=== PATIENT | female | born 1985 | race Caucasian/White ===

== ENCOUNTER 2016-07-28 12:36 | Outpatient (CLI) | payer MEDICAID | END 2016-07-28 12:37 | disposition home or self-care (01) | DX: Z36 Encounter for antenatal screening of mother (principal) ==

== ENCOUNTER 2016-12-01 05:40 | Emergency (ER) | payer MEDICAID ==
[2016-12-01 05:55] VITALS: BP 152/85
--- NOTE | 2016-12-01 05:55 | ED Physician Documentation ---
PD HPI HEENT - Stated complaint Stated Complaint: R EAR PAIN,SORE THROAT, COUGH - Chief complaint Chief Complaint: Heent - History obtained from History obtained from: Patient - History of Present Illness Timing - onset: Enter time (03:00), Today Timing - details: Gradual onset Pain level now: 4 Location: Right ear, Throat Improves: Nothing Worsens: Other (no exacerbating factors) Associated symptoms: Congestion, Cough. No: Fever Similar symptoms before: Has not had sx before Recently seen: Not recently seen - Additional information Additional information: 38 weeks . patient says she frequently has seasonal allergies and has felt sinus and ear congestion x 2 weeks, but she has been having mild cough x 2 days, and since approximately 3 AM this morning, increasingly severe right ear pain and sore throat. 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 Psych: Depression, Anxiety - Past Surgical History Past Surgical History: Yes General: Appendectomy, Hiatal hernia repair, Colonoscopy, EGD - Present Medications Home Medications: Ambulatory Orders Medication Instructions Recorded Confirmed Azithromycin [Zithromax] 250 mg PO DAILY #4 tablet 12/01/16 Cetirizine [ZyrTEC] 10 mg PO DAILY 12/01/16 12/01/16 Fluticasone [Flonase] 1 spray NS DAILY PRN 12/01/16 12/01/16 - Allergies Allergies/Adverse Reactions: Allergies Allergy/AdvReac Type Severity Reaction Status Date / Time No Known Drug Allergies Allergy Verified 12/01/16 05:45 - Social History Does the pt smoke?: No Smoking Status: Never smoker Does the pt drink ETOH?: No Does the pt have substance abuse?: No - Immunizations Immunizations are current?: Yes - POLST Patient has POLST: No PD ED PE NORMAL - Vitals Vital signs reviewed: Yes - General General: Alert and oriented X 3, No acute distress, Well developed/nourished - HEENT HEENT: Pharynx benign - Neck Neck: Supple, no meningeal sign - Respiratory Respiratory: No respiratory distress, Clear bilaterally PD ED PE EXPANDED - HEENT HEENT: R TM red, R TM bulging Results - Vitals Vitals: Vital Signs - 24 hr 12/01/16 05:42 Temperature 36.0 C L Heart Rate 100 Respiratory 15 Rate Blood Pressure 152/85 H O2 Saturation 100 Oxygen O2 Source Room air PD MEDICAL DECISION MAKING - ED course Complexity details: considered differential, d/w patient Departure - Departure Disposition: 01 Home, Self Care Clinical Impression: Otitis media Qualifiers: Otitis media type: suppurative Laterality: right Chronicity: acute Recurrence: not specified as recurrent Spontaneous tympanic membrane rupture: without spontaneous rupture Qualified Code(s): H66.001 - Acute suppurative otitis media without spontaneous rupture of ear drum, right ear Condition: Good Instructions: ED Otitis Media Acute Adult Follow-Up: Nela Stewart ARNP [Primary Care Provider] - Prescriptions: Azithromycin [Zithromax] 250 mg PO DAILY #4 tablet Discharge Date/Time: 12/01/16 06:26
[2016-12-01] MEDS ORDERED: AZITHROMYCIN 250 MG TABLET PO STA (06:13)
[2016-12-01] MEDS ORDERED: AZITHROMYCIN 250 MG TABLET PO ONE (06:16)
== END 2016-12-01 06:26 | disposition home or self-care (01) ==
LOC: ED 05:40
DX: O99.89 Other specified diseases and conditions complicating pregnancy, childbirth and the puerperium (principal); H66.001 Acute suppurative otitis media without spontaneous rupture of ear drum, right ear; Z3A.38 38 weeks gestation of pregnancy
CPT/HCPCS: 99283; A9270

== ENCOUNTER 2016-12-02 08:49 | Emergency (ER) | payer MEDICAID ==
[2016-12-02] MEDS ORDERED: ONDANSETRON 4 MG/2 ML VIAL IVP STA ×2 (09:29→11:12)
[2016-12-02] MEDS ORDERED: FAMOTIDINE 20 MG/50 ML 50 ML IV ONE ×2 (09:29→09:40)
[2016-12-02] MEDS ORDERED: SODIUM CHLORIDE 0.9% 1,000 ML IV ONE ×2 (09:29→11:12)
[2016-12-02] MEDS ORDERED: ACETAMINOPHEN 1,000 MG/100 ML 100 ML IV STA (09:29)
[2016-12-02] MEDS ORDERED: ONDANSETRON 4 MG/2 ML VIAL ONE ×2 (09:40→11:15)
[2016-12-02] MEDS ORDERED: ACETAMINOPHEN 1,000 MG/100 ML 100 ML IV ONE (09:40)
[2016-12-02] MEDS ORDERED: PROMETHAZINE INJ 12.5 MG in SODIUM CHLORIDE 0.9% 50 ML IV STA (11:39)
[2016-12-02] MEDS ORDERED: PROMETHAZINE 25 MG/1 ML VIAL ONE (11:43)
[2016-12-02] MEDS ORDERED: MECLIZINE 12.5 MG TABLET PO STA (13:02)
[2016-12-02] MEDS ORDERED: AMOXICILLIN 250 MG CAPSULE PO STA (13:03)
[2016-12-02] MEDS ORDERED: AMOXICILLIN 250 MG CAPSULE PO ONE (13:05)
[2016-12-02] MEDS ORDERED: MECLIZINE 12.5 MG TABLET PO ONE (13:06)
== END 2016-12-02 14:35 | disposition home or self-care (01) ==
DX: R42 Dizziness and giddiness (principal); H66.001 Acute suppurative otitis media without spontaneous rupture of ear drum, right ear; R11.2 Nausea with vomiting, unspecified; T36.3X5A Adverse effect of macrolides, initial encounter; Y92.019 Unspecified place in single-family (private) house as the place of occurrence of the external cause
CPT/HCPCS: 36415; 80053; 83690; 96365; 96367; 96375; 96376; 99284; A9270; J0131

== ENCOUNTER 2020-04-23 15:14 | Outpatient (CLI) | payer MEDICAID ==
[2020-04-23 15:29] LABS: MUDS CUTOFF CONCENTRATIONS CUTOFF CONC BELOW:
[2020-04-23 20:42] LABS: AMPHETAMINE SCREEN,URINE NEGATIVE (NEGATIVE); BENZODIAZEPINES SCREEN, URINE NEGATIVE (NEGATIVE); COCAINE SCREEN URINE NEGATIVE (NEGATIVE); METHADONE SCREEN, URINE NEGATIVE (NEGATIVE); METHAMPHETAMINES SCREEN, URINE NEGATIVE (NEGATIVE); OPIATE SCREEN, URINE NEGATIVE (NEGATIVE); OXYCODONE SCREEN, URINE NEGATIVE (NEGATIVE); PROPOXYPHENE SCREEN, URINE NEGATIVE (NEGATIVE); TRICYCLIC ANTIDEPRESSANT,URINE NEGATIVE (NEGATIVE)
== END 2020-04-23 15:15 | disposition home or self-care (01) ==
LOC: LAB.S 15:14
PROVIDERS: ATTEND Nurse Practitioner Psychiatric/Mental Health
DX: F90.0 Attention-deficit hyperactivity disorder, predominantly inattentive type (principal)
CPT/HCPCS: 80306

== ENCOUNTER 2020-06-08 14:38 | Outpatient (CLI) | payer MEDICAID ==
[2020-06-08 20:00] LABS: BASOPHILS % (AUTO) 0.7 %; EOSINOPHILS # (AUTO) 0.1 10^3/uL (0.0-0.7); EOSINOPHILS % (AUTO) 1.7 %; HGB - HEMOGLOBIN 14.8 g/dL (12.0-16.0); LYMPHOCYTES # (AUTO) 1.9 10^3/uL (1.5-3.5); LYMPHOCYTES % (AUTO) 32.3 %; MEAN CORPUSCULAR HEMOGLOBIN 29.5 pg (27.0-31.0); MEAN CORPUSCULAR HGB CONC 32.7 g/dL (32.0-36.0); MEAN CORPUSCULAR VOLUME 90.4 fL (81.0-99.0); MEAN PLATELET VOLUME 10.9 fL (7.9-10.8); MONOCYTES # (AUTO) 0.4 10^3/uL (0.0-1.0); MONOCYTES % (AUTO) 7.1 %; NEUTROPHILS # (AUTO) 3.3 10^3/uL (1.5-6.6); PLT - PLATELET COUNT 282 10^3/uL (130-450); RED BLOOD COUNT 5.01 10^6/uL (4.20-5.40); RED CELL DISTRIBUTION WIDTH 13.2 % (12.0-15.0); WHITE BLOOD COUNT 5.8 x10^3/uL (4.8-10.8)
[2020-06-08 20:13] LABS: ALBUMIN 4.4 g/dL (3.2-5.5); ALBUMIN/GLOBULIN RATIO 1.5 (1.0-2.2); BILIRUBIN,TOTAL 0.6 mg/dL (0.2-1.0); CALCIUM 9.3 mg/dL (8.5-10.3); CREATININE 0.6 mg/dL (0.4-1.0); TOTAL PROTEIN 7.4 g/dL (6.7-8.2)
[2020-06-08 20:32] LABS: RHEUMATOID FACTOR NEGATIVE (Negative)
== END 2020-06-08 14:39 | disposition home or self-care (01) ==
LOC: LAB.S 14:38
PROVIDERS: ATTEND Registered Nurse
DX: K50.90 Crohn's disease, unspecified, without complications (principal); M25.50 Pain in unspecified joint
CPT/HCPCS: 36415; 80053; 84443; 85025; 85651; 86038; 86430

== ENCOUNTER 2020-10-17 11:18 | Emergency (ER) | payer MEDICAID ==
[2020-10-17] MEDS ORDERED: diphenhydrAMINE 25 MG CAPSULE PO STA (11:48)
--- NOTE | 2020-10-17 12:27 | ED Physician Documentation ---
PD HPI SKIN - Stated complaint Stated Complaint: HIVES - Chief complaint Chief Complaint: Allergic Rx - History obtained from History obtained from: Patient - Additional information Additional information: Got first dose mRNA vaccine for Covid 3 days ago. The subsequent day developed diffuse body wide hives and itching. Has not tried anything for it. No throat swelling. 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 HEENT: Other (vertigo at times) Psych: Depression, Anxiety - Past Surgical History Past Surgical History: Yes General: Appendectomy, Hiatal hernia repair, Colonoscopy, EGD - Present Medications Home Medications: Ambulatory Orders Medication Instructions Recorded Confirmed Cetirizine HCl [Zyrtec] 1 tab PO DAILY 10/17/20 10/17/20 Dextroamphetamine/Amphetamine 1 tab PO DAILY PM 10/17/20 10/17/20 [Adderall 10 mg Tablet] Dextroamphetamine/Amphetamine 1 tab PO BID 10/17/20 10/17/20 [Adderall 20 mg Tablet] - Allergies Allergies/Adverse Reactions: Allergies Allergy/AdvReac Type Severity Reaction Status Date / Time No Known Drug Allergies Allergy Verified 12/02/16 08:59 - Social History Does the pt smoke?: No Smoking Status: Never smoker Does the pt drink ETOH?: No Does the pt have substance abuse?: No - Immunizations Immunizations are current?: Yes - POLST Patient has POLST: No PD ED PE NORMAL - Vitals Vital signs reviewed: Yes - General General: Alert and oriented X 3, No acute distress - HEENT HEENT: Other (Modest diffuse urticaria, oropharynx normal, phonation normal) - Respiratory Respiratory: No respiratory distress - Abdomen Abdomen: Non tender - Derm Derm: Warm and dry - Neuro Neuro: Alert and oriented X 3, Normal speech Results - Vitals Vitals: Vital Signs - 24 hr 10/17/20 11:35 Temperature 36.7 C Heart Rate 90 Respiratory 20 Rate Blood Pressure 149/99 H O2 Saturation 98 Oxygen O2 Source Room air PD MEDICAL DECISION MAKING - ED course ED course: Would hold steroids under the circumstances, noting that she is not having anaphylaxis and it would blunt any immune response she is having to the vaccine. Discussed that for second dose she should probably seek out an alternative formulation such as Tony & Tony. Departure - Departure Disposition: 01 Home, Self Care Clinical Impression: Allergic urticaria Condition: Good Record reviewed to determine appropriate education?: Yes Instructions: ED Drug React Allergic Comments: Benadryl, 1 to 2 tablets [id number] every 6 hours as needed for the itching. Do not drink or drive with it. As discussed I would recommend seeking out a Tony & Tony vaccine in 3+ weeks for second dose, I would recommend taking a second dose of either of the mRNA vaccines (Pfizer or Moderna).
[2020-10-17 12:32] VITALS: BP 119/79
== END 2020-10-17 12:35 | disposition home or self-care (01) ==
LOC: ED 11:18
DX: L50.0 Allergic urticaria (principal); T50.Z95A Adverse effect of other vaccines and biological substances, initial encounter; Y84.8 Other medical procedures as the cause of abnormal reaction of the patient, or of later complication, without mention of misadventure at the time of the procedure
CPT/HCPCS: 99282; A9270

== ENCOUNTER 2020-10-23 10:20 | Outpatient (CLI) | payer MEDICAID ==
--- OUTSIDE RECORDS SUMMARY | 2020-10-27 02:38 | EXTERNAL MEDICAL SUMMARY RPT | Continuity of Care Document ---
:1985 Demographics Phone Unavailable Preferred Language Unknown Marital Status Unknown Faith Affiliation Unknown Race Unknown Ethnic Group Unknown Author Organization [facility] Address [address] [id number] Phone Social History date description facility [phone]
== END 2020-10-23 10:21 ==
LOC: EMS 10:20
DX: L50.9 Urticaria, unspecified (principal); R22.0 Localized swelling, mass and lump, head

== ENCOUNTER 2020-10-23 11:06 | Emergency (ER) | payer MEDICAID ==
[2020-10-23 11:14] VITALS: BP 132/79
[2020-10-23] MEDS ORDERED: predniSONE 20 MG TABLET PO STA (11:21)
[2020-10-23] MEDS ORDERED: diphenhydrAMINE 25 MG CAPSULE PO STA (11:21)
--- NOTE | 2020-10-23 11:24 | ED Physician Documentation ---
PD HPI SKIN - Stated complaint Stated Complaint: SWOLLEN LIPS - Chief complaint Chief Complaint: Allergic Rx - History obtained from History obtained from: Patient - Additional information Additional information: She had first dose Mderna vaccine about 9 or 10 days ago. She was seen a few days ago for hives and conservative care and Benadryl were advised with the thought that we wanted to try to avoid steroids to blunt the immune response, since then though she started developed some lip swelling which is concerning. Still has the hives but itching is controlled with Benadryl. 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 HEENT: Other Psych: Depression, Anxiety - Past Surgical History Past Surgical History: Yes General: Appendectomy, Hiatal hernia repair, Colonoscopy, EGD - Present Medications Home Medications: Ambulatory Orders Medication Instructions Recorded Confirmed Cetirizine HCl [Zyrtec] 1 tab PO DAILY 10/17/20 10/17/20 Dextroamphetamine/Amphetamine 1 tab PO DAILY PM 10/17/20 10/17/20 [Adderall 10 mg Tablet] Dextroamphetamine/Amphetamine 1 tab PO BID 10/17/20 10/17/20 [Adderall 20 mg Tablet] predniSONE [Deltasone] 20 mg PO [id number] #[id number] tab 10/23/20 - Allergies Allergies/Adverse Reactions: Allergies Allergy/AdvReac Type Severity Reaction Status Date / Time No Known Drug Allergies Allergy Verified 10/23/20 11:14 - Social History Does the pt smoke?: No Smoking Status: Never smoker Does the pt drink ETOH?: No Does the pt have substance abuse?: No - Immunizations Immunizations are current?: Yes - POLST Patient has POLST: No PD ED PE NORMAL - Vitals Vital signs reviewed: Yes - General General: Alert and oriented X 3, No acute distress - HEENT HEENT: Other (Very mild angioedema of the lower lip. No retropharyngeal swelling.) - Neck Neck: Supple, no meningeal sign, No bony TTP - Derm Derm: Other (Modest diffuse hives) - Neuro Neuro: Alert and oriented X 3, Normal speech Results - Vitals Vitals: Vital Signs - 24 hr 10/23/20 11:07 Temperature 36.6 C Heart Rate 78 Respiratory 16 Rate Blood Pressure 132/79 H O2 Saturation 99 Oxygen O2 Source Room air PD MEDICAL DECISION MAKING - ED course ED course: Given the persistent nature now mild angioedema of the lips, I think it probably is time to go ahead and start steroids. She was again guided that if she were to get another Covid vaccine and should be Tony & Tony Or another nonmRNA formulation. Departure - Departure Disposition: 01 Home, Self Care Clinical Impression: Allergic urticaria Condition: Good Record reviewed to determine appropriate education?: Yes Instructions: ED Allergic Reaction General Other Prescriptions: predniSONE [Deltasone] 20 mg PO [id number] #21 tab Comments: Return if worsening. Again as previously discussed, if you decide to get another coronavirus vaccine should be a nonmRNA formulation such as Tony & Tony.
--- OUTSIDE RECORDS SUMMARY | 2020-10-27 02:31 | EXTERNAL MEDICAL SUMMARY RPT | Continuity of Care Document ---
:1985 Demographics Phone Unavailable Preferred Language Unknown Marital Status Unknown Tenriism Affiliation Unknown Race Unknown Ethnic Group Unknown Author Organization [facility] Address [address] [id number] Phone Social History date description facility [phone]
== END 2020-10-23 11:30 | disposition home or self-care (01) ==
LOC: ED 11:06
DX: L50.0 Allergic urticaria (principal); T78.3XXA Angioneurotic edema, initial encounter; T50.Z95A Adverse effect of other vaccines and biological substances, initial encounter; Y84.8 Other medical procedures as the cause of abnormal reaction of the patient, or of later complication, without mention of misadventure at the time of the procedure
CPT/HCPCS: 99282; 99284; A9270; J7512

== ENCOUNTER 2020-11-05 08:00 | Outpatient (CLI) | payer MEDICAID ==
[2020-11-05 21:16] LABS: BASOPHILS % (AUTO) 0.1 %; EOSINOPHILS % (AUTO) 0.1 %; HCT - HEMATOCRIT 39.7 % (37.0-47.0); HGB - HEMOGLOBIN 12.9 g/dL (12.0-16.0); LYMPHOCYTES % (AUTO) 27.9 %; MEAN CORPUSCULAR HEMOGLOBIN 28.3 pg (27.0-31.0); MEAN CORPUSCULAR HGB CONC 32.5 g/dL (32.0-36.0); MEAN CORPUSCULAR VOLUME 87.1 fL (81.0-99.0); MONOCYTES # (AUTO) 0.6 10^3/uL (0.0-1.0); NEUTROPHILS # (AUTO) 6.9 10^3/uL (1.5-6.6); NEUTROPHILS % (AUTO) 65.4 %; PLT - PLATELET COUNT 334 10^3/uL (130-450); RED BLOOD COUNT 4.56 10^6/uL (4.20-5.40); RED CELL DISTRIBUTION WIDTH 14.4 % (12.0-15.0); WHITE BLOOD COUNT 10.6 x10^3/uL (4.8-10.8)
[2020-11-05 21:33] LABS: CALCIUM 9.1 mg/dL (8.5-10.3); CREATININE 0.7 mg/dL (0.4-1.0)
== END 2020-11-05 23:59 | disposition home or self-care (01) ==
LOC: LAB.S 08:00
PROVIDERS: ATTEND Physician Assistant
DX: R00.0 Tachycardia, unspecified (principal)
CPT/HCPCS: 36415; 80048; 85025

== ENCOUNTER 2021-02-18 08:00 | Outpatient (CLI) | payer MEDICAID ==
[2021-02-18 20:13] LABS: ALBUMIN 3.9 g/dL (3.2-5.5); ALBUMIN/GLOBULIN RATIO 1.3 (1.0-2.2); BILIRUBIN,TOTAL 0.5 mg/dL (0.2-1.0); CALCIUM 8.8 mg/dL (8.5-10.3); CREATININE 0.7 mg/dL (0.4-1.0); POTASSIUM 4.1 mmol/L (3.5-5.0); TOTAL PROTEIN 6.9 g/dL (6.7-8.2)
== END 2021-02-18 23:59 | disposition home or self-care (01) ==
LOC: LAB.S 08:00
PROVIDERS: ATTEND Physician Assistant Medical
DX: Z51.81 Encounter for therapeutic drug level monitoring (principal); Z79.899 Other long term (current) drug therapy
CPT/HCPCS: 36415; 80053

== ENCOUNTER 2021-02-18 08:00 | Outpatient (CLI) | payer MEDICAID ==
[2021-02-19 21:31] LABS: BACTERIAL VAGINOSIS DNA NEGATIVE (NEGATIVE); CANDIDA GLABRATA DNA NEGATIVE (NEGATIVE); CANDIDA GROUP DNA NEGATIVE (NEGATIVE); CANDIDA KRUSEI DNA NEGATIVE (NEGATIVE); TRICHOMONAS VAGINALIS DNA NEGATIVE (NEGATIVE)
== END 2021-02-18 23:59 | disposition home or self-care (01) ==
LOC: LAB.S 08:00
PROVIDERS: ATTEND Physician Assistant Medical
DX: R10.9 Unspecified abdominal pain (principal)
CPT/HCPCS: 87661; 87801

== ENCOUNTER 2021-04-01 13:05 | Outpatient (CLI) | payer MEDICAID ==
[2021-04-01 20:36] LABS: BILIRUBIN,URINE NEGATIVE (NEGATIVE); GLUCOSE, URINE (UA) NEGATIVE (NEGATIVE); KETONES,URINE (UA) NEGATIVE (NEGATIVE); LEUKOCYTE ESTERASE, URINE NEGATIVE (NEGATIVE); NITRITE,URINE NEGATIVE (NEGATIVE); OCCULT BLOOD,URINE NEGATIVE (NEGATIVE); PROTEIN,URINE NEGATIVE (NEGATIVE); UROBILINOGEN,URINE 0.2 (NORMAL) E.U./dL (NORMAL)
[2021-04-01 20:42] LABS: CLARITY,URINE CLEAR (CLEAR)
[2021-04-01 20:43] LABS: BACTERIA,URINE None Seen /HPF (None Seen); RBC,URINE None Seen /HPF (0-5); SQUAMOUS EPITHELIAL CELL,UR RARE Squamous (<= Few); WBC,URINE 0-3 /HPF (0-5)
== END 2021-04-01 23:59 | disposition home or self-care (01) ==
LOC: LAB.S 13:05
PROVIDERS: ATTEND Nurse Practitioner
DX: R30.0 Dysuria (principal)
CPT/HCPCS: 81001; 87086

== ENCOUNTER 2022-05-17 08:00 | Outpatient (CLI) | payer MEDICAID ==
[2022-05-17 22:25] LABS: BACTERIAL VAGINOSIS DNA NEGATIVE (NEGATIVE); CANDIDA GLABRATA DNA NEGATIVE (NEGATIVE); CANDIDA GROUP DNA NEGATIVE (NEGATIVE); CANDIDA KRUSEI DNA NEGATIVE (NEGATIVE); TRICHOMONAS VAGINALIS DNA NEGATIVE (NEGATIVE)
== END 2022-05-17 23:59 | disposition home or self-care (01) ==
LOC: LAB.S 08:00
PROVIDERS: ATTEND Physician Assistant Medical
DX: L29.8 Other pruritus (principal); R07.0 Pain in throat
CPT/HCPCS: 81514; 87070; 87181

== ENCOUNTER 2023-10-13 07:00 | Outpatient (CLI) | payer MEDICAID ==
[2023-10-13 21:07] LABS: CHLAMYDIA TRACHOMATIS DNA NEGATIVE (NEGATIVE); NEISSERIA GONORRHOEAE DNA NEGATIVE (NEGATIVE)
[2023-10-13 21:49] LABS: BACTERIAL VAGINOSIS DNA NEGATIVE (NEGATIVE); CANDIDA GLABRATA DNA NEGATIVE (NEGATIVE); CANDIDA GROUP DNA NEGATIVE (NEGATIVE); CANDIDA KRUSEI DNA NEGATIVE (NEGATIVE); TRICHOMONAS VAGINALIS DNA NEGATIVE (NEGATIVE)
== END 2023-10-13 23:59 | disposition home or self-care (01) ==
LOC: LAB.S 07:00
PROVIDERS: ATTEND Emergency Medicine
DX: N76.0 Acute vaginitis (principal)
CPT/HCPCS: 81514; 87491; 87591; 87661